=== PATIENT | male | born 1980 | race Caucasian/White ===

== ENCOUNTER 2016-09-23 00:15 | Emergency (ER) | payer OTHER ==
[2016-09-23 00:20] VITALS: TEMP 97.9
[2016-09-23] MEDS ORDERED: NS 1,000 ML IV ONE (00:30)
[2016-09-23] MEDS ORDERED: KETOROLAC 30 MG/1 ML SDV IVP ONE (00:30)
[2016-09-23] MEDS ORDERED: ONDANSETRON 4 MG/2 ML VIAL IVP ONE (00:30)
[2016-09-23] MEDS ORDERED: HALOPERIDOL LACT 5 MG/ML INJ IVP ONE (00:31)
--- NOTE | 2016-09-23 00:33 | EDPHY ---
H & P Stated Complaint: NAUSEA VOMITING FOR WEEKS, SICLET VOMITING Source: Patient, Old records Exam Limitations: No limitations - Personal History Current Tetanus/Diphtheria Vaccine: Yes Current Tetanus Diphtheria and Acellular Pertussis (TDAP): Yes - Medical/Surgical History Hx Asthma: No Hx Chronic Respiratory Disease: No Hx Diabetes: No Hx Cardiac Disease: No Hx Renal Disease: No Hx Cirrhosis: No Hx Alcoholism: No Hx HIV/AIDS: No Hx Splenectomy or Spleen Trauma: No Other PMH: DEPRESSION ANXIETY, cyclic vomiting - Family History Significant Family History: No pertinent family hx - Social History Smoking Status: Former smoker Alcohol Use: Sober Drug Use: None Time Seen by Provider: 09/23/16 00:26 HPI/ROS: CHIEF COMPLAINT: Cyclic vomiting HISTORY OF PRESENT ILLNESS: Patient is a 36-year-old man who comes to the emergency department complaining of cyclic vomiting. He states that he has been vomiting for about the last 2 weeks. Symptoms worsened today. He has not had a fever. He denies abdominal pain. He denies diarrhea. He states that he smokes marijuana daily. He has been told this contributes to the problem. He is taking BuSpar at home. He has not taken any other medications. No history of abdominal surgery. REVIEW OF SYSTEMS: Constitutional: denies: chills, fever, recent illness, recent injury EENTM: denies: blurred vision, double vision, nose congestion Respiratory: denies: cough, shortness of breath Cardiac: denies: chest pain, irregular heart rate, lightheadedness, palpitations Gastrointestinal/Abdominal: denies: abdominal pain, diarrhea, nausea, vomiting, blood streaked stools Genitourinary: denies: dysuria, frequency, hematuria, pain Musculoskeletal: denies: joint pain, muscle pain Skin: denies: lesions, rash, jaundice, bruising Neurological: denies: headache, numbness, paresthesia, tingling, dizziness, weakness Hematologic/Lymphatic: denies: blood clots, easy bleeding, easy bruising Immunologic/allergic: denies: HIV/AIDS, transplant EXAM: GENERAL: Moderate distress HEAD: Atraumatic, normocephalic. EYES: Pupils equal round and reactive to light, extraocular movements intact, sclera anicteric, conjunctiva are normal. ENT: TMs normal, nares patent, oropharynx clear without exudates. Moist mucous membranes. NECK: Normal range of motion, supple without lymphadenopathy or JVD. LUNGS: Breath sounds clear to auscultation bilaterally and equal. No wheezes rales or rhonchi. HEART: Regular rate and rhythm without murmurs, rubs or gallops. ABDOMEN: Soft, nontender, normoactive bowel sounds. No guarding, no rebound. No masses appreciated. BACK: No CVA tenderness, no spinal tenderness, step-offs or deformities EXTREMITIES: Normal range of motion, no pitting or edema. No clubbing or cyanosis. NEUROLOGICAL: Cranial nerves II through XII grossly intact. Normal speech, normal gait. 5/5 strength, normal movement in all extremities, normal sensation PSYCH: Normal mood, normal affect. SKIN: Warm, dry, normal turgor, no visible rashes or lesions. (Nato Goodson) Constitutional: Initial Vital Signs Temperature (C) 36.6 C 09/23/16 00:17 Heart Rate 66 09/23/16 00:17 Respiratory Rate 18 09/23/16 00:17 Blood Pressure 155/86 H 09/23/16 00:17 O2 Sat (%) 98 09/23/16 00:17 O2 Delivery Mode Room Air Allergies/Adverse Reactions: No Known Allergies Allergy (Unverified 09/23/16 00:20) Home Medications: Medication Instructions Recorded buPROPion SR [Wellbutrin] 300 mg PO DAILY 05/05/11 Medical Decision Making ED Course/Re-evaluation: Patient is improved. No further vomiting in his abdomen feels better. He would like to go home. Will discharge per Dr. Goodson instructions. (Lalito Centeno) The patient's abdominal exam is benign. He states that this is similar to previous episodes cyclic vomiting. he is requesting Zofran and fluids. Also treated with Haldol and Toradol for pain. He has received Toradol before. 1:00 a.m. patient's care transferred to Dr Centeno. Patient's abdominal exam remains benign. He states that the medication is beginning to work. We will continue to observe. (Nato Goodson) Differential Diagnosis: Partial list of the Differential diagnosis considered include but were not limited to; gastritis, cyclic vomiting, cannabis hyperemesis and although unlikely based on the history and physical exam, I also considered pancreatitis , appendicitis, biliary disease, peptic ulcer disease. (Nato Goodson) - Data Points Medications Given: Discontinued Medications Haloperidol Lactate (Haldol Injection) 5 mg IVP EDNOW ONE Stop: 09/23/16 00:32 Last Admin: 09/23/16 00:44 Dose: 5 mg Sodium Chloride (Ns) 1,000 mls @ 0 mls/hr IV ONCE ONE PRN Reason: Wide Open Stop: 09/23/16 00:31 Last Admin: 09/23/16 00:40 Dose: 1,000 mls Ketorolac Tromethamine (Toradol) 30 mg IVP EDNOW ONE Stop: 09/23/16 00:31 Last Admin: 09/23/16 00:42 Dose: 30 mg Ondansetron HCl (Zofran) 8 mg IVP EDNOW ONE Stop: 09/23/16 00:31 Last Admin: 09/23/16 00:42 Dose: 8 mg Departure - Departure Disposition: Home, Routine, Self-Care Clinical Impression: Marijuana abuse Cyclic vomiting syndrome Qualifiers: Vomiting Intractability: non-intractable Nausea presence: with nausea Qualified Code(s): G43.A0 - Cyclical vomiting, not intractable Condition: Fair Instructions: Acute Nausea and Vomiting (ED), Cannabis Abuse (ED) Referrals: Patient,NotPresent [Unknown] - As per Instructions Mary Epstein MD [Medical Doctor] - As per Instructions
[2016-09-23 01:50] VITALS: BP 167/83; RESP 16; O2SAT 94
[2016-09-23 02:01] VITALS: PULSE 50
== END 2016-09-23 02:01 | disposition home or self-care (01) ==
DX: G43.A0 Cyclical vomiting, in migraine, not intractable (principal); F12.10 Cannabis abuse, uncomplicated; Z87.891 Personal history of nicotine dependence
CPT/HCPCS: 96374; J1885; J2405

== ENCOUNTER 2016-09-24 08:34 | Emergency (ER) | payer OTHER ==
[2016-09-24] MEDS ORDERED: NS 2,000 ML IV ONE (09:09)
[2016-09-24] MEDS ORDERED: HALOPERIDOL LACT 5 MG/ML INJ IVP ONE (09:09)
--- NOTE | 2016-09-24 09:16 | EDPHY ---
H & P Stated Complaint: Here yesterday for same c/o;dx w/cyc vom syndrome;needs nausea med Time Seen by Provider: 09/24/16 08:56 HPI/ROS: CHIEF COMPLAINT: Vomiting, history of cyclic vomiting syndrome HISTORY OF PRESENT ILLNESS: 36-year-old male history of cyclic vomiting, daily marijuana use, seen the ER yesterday for complaints of acute exacerbation with cyclic vomiting, had relief after 5 mg of IV Haldol, states that he returned home and he had return of his nausea and vomiting. No abdominal pain. Bowel movements normal. No hematemesis. No melena or hematochezia. No dyspnea. No chest pain. No testicular pain or complaints. PRIMARY CARE PROVIDER:Reza REVIEW OF SYSTEMS: A ten point review of systems was performed and is negative with the exception of the items mentioned in the HPI PAST MEDICAL & SURGICAL HISTORY: Cyclic vomiting SOCIAL HISTORY: Daily marijuana PHYSICAL EXAM (Prior to examination, patient consented to physical exam, hands were washed and my usual and customary physical exam procedures followed) 1) GENERAL: Well-developed, well-nourished, alert and oriented. Appears nontoxic 2) HEAD: Normocephalic, atraumatic 3) HEENT: Pupils equal, round, reactive to light bilaterally. Sclera anicteric. Nasopharynx, oropharynx, clear, no lesions. Moist mucous membranes 4) NECK: Full range of motion, no meningeal signs. 5) LUNGS: Clear auscultation bilaterally, no wheezes, no rhonchi, no retractions. 6) HEART: Regular rate and rhythm, no murmur, no heave, no gallop. 7) ABDOMEN: No guarding, no rebound, no focal tenderness, negative McBurney's, negative Galicia's, negative Rovsing's, negative peritoneal sign, I am unable to elicit any abdominal pain on exam 8) MUSCULOSKELETAL: Moving all extremities, no focal areas of tenderness, no obvious trauma. No peripheral edema or discoloration. 9) BACK: No CVA tenderness, no midline vertebral tenderness, no fluctuance, no step-off, no obvious trauma, no visual or palpable abnormality. 10) SKIN: No rash, no petechiae. 11) Psychiatric: Patient is oriented X 3, there is no agitation. DIFFERENTIAL DIAGNOSIS: My differential diagnosis includes, but is not limited to, acute appendicitis, Cyclic vomiting,acute cholecystitis, bowel obstruction , acute pancreatitis, [testicular torsion, gastritis and urinary tract infection. The patient understands that this diagnosis is provisional and can never be 100% accurate. This is a partial list of diagnoses considered. These considerations are based on history, physical exam, past history and reassessment. - Personal History Current Tetanus Diphtheria and Acellular Pertussis (TDAP): Yes - Medical/Surgical History Hx Asthma: No Hx Chronic Respiratory Disease: No Hx Diabetes: No Hx Cardiac Disease: No Hx Renal Disease: No Hx Cirrhosis: No Hx Alcoholism: No Hx HIV/AIDS: No Hx Splenectomy or Spleen Trauma: No Other PMH: DEPRESSION ANXIETY, cyclic vomiting - Social History Smoking Status: Former smoker Constitutional: Initial Vital Signs Temperature (C) 36.6 C 09/24/16 08:35 Heart Rate 92 09/24/16 08:35 Respiratory Rate 16 09/24/16 08:35 Blood Pressure 146/102 H 09/24/16 08:35 O2 Sat (%) 98 09/24/16 08:35 O2 Delivery Mode Room Air Allergies/Adverse Reactions: No Known Allergies Allergy (Verified 09/24/16 08:36) Home Medications: Medication Instructions Recorded buPROPion SR [Wellbutrin] 300 mg PO DAILY 05/05/11 busPIRone [Buspar (*)] 10 mg PO 09/24/16 Medical Decision Making ED Course/Re-evaluation: 9:15 a.m. This patient appears well. I have reviewed his medical chart. He had resolution of symptoms after 5 mg of IV Haldol. This will be administered to him in addition to his IV fluids. At this time, in the absence of abdominal or testicular pain I do not think that imaging or laboratory studies are indicated I think that acute surgical abdominal/ pathology is less than likely. 9:41 a.m.: Patient noted to have a BUN creatinine ratio of 27. He has been given aggressive IV hydration with 2 L of normal saline. He is feeling improvement at this time 10:15 a.m.: Re-evaluation, asymptomatic. Abdomen soft no guarding or rebound. 11:15 a.m.: Re-evaluation. Re-examined his abdomen which is soft no guarding no rebound, flat. No McBurney's point pain. He is tolerate oral intake. He is asymptomatic. He would like to be discharged home. I think that acute surgical abdominal pathology is less than likely in this patient. He is a [place] patient. I recommend he follow up with his [place] physician this week ( today is Friday) as he may necessitate GI consultation and workup. In the meantime he has a prescription for anti emetic at home. Recommend marijuana cessation. Usual and customary abdominal precautions instructions provided. I discussed case Dr. Paulino Eaton in the ER. - Data Points Laboratory Results: Laboratory Results 09/24/16 08:51 09/24/16 08:51 09/24/16 09/24/16 08:51 08:51 WBC 18.41 10^3/uL H 10^3/uL (3.80-9.50) RBC 5.51 10^6/uL 10^6/uL (4.40-6.38) Hgb 18.1 g/dL H g/dL (13.7-17.5) Hct 50.5 % % (40.0-51.0) MCV 91.7 fL fL (81.5-99.8) MCH 32.8 pg pg (27.9-34.1) MCHC 35.8 g/dL g/dL (32.4-36.7) RDW 12.3 % % (11.5-15.2) Plt Count 270 10^3/uL 10^3/uL (150-400) MPV 10.4 fL fL (8.7-11.7) Neut % (Auto) 86.4 % H % (39.3-74.2) Lymph % (Auto) 6.2 % L % (15.0-45.0) [place] % (Auto) 7.0 % % (4.5-13.0) Eos % (Auto) 0.0 % L % (0.6-7.6) Baso % (Auto) 0.1 % L % (0.3-1.7) Nucleat RBC Rel Count 0.0 % % (0.0-0.2) Absolute Neuts (auto) 15.92 10^3/uL H 10^3/uL (1.70-6.50) Absolute Lymphs (auto) 1.14 10^3/uL 10^3/uL (1.00-3.00) Absolute Monos (auto) 1.28 10^3/uL H 10^3/uL (0.30-0.80) Absolute Eos (auto) 0.00 10^3/uL L 10^3/uL (0.03-0.40) Absolute Basos (auto) 0.01 10^3/uL L 10^3/uL (0.02-0.10) Absolute Nucleated RBC 0.00 10^3/uL 10^3/uL (0-0.01) Immature Gran % 0.3 % % (0.0-1.1) Immature Gran # 0.06 10^3/uL 10^3/uL (0.00-0.10) Sodium 140 mEq/L mEq/L (134-144) Potassium 4.2 mEq/L mEq/L (3.5-5.2) Chloride 99 mEq/L mEq/L (97-110) Carbon Dioxide 23 mEq/l mEq/l (22-31) Anion Gap 18 mEq/L H mEq/L (8-16) BUN 36 mg/dL H mg/dL (7-23) Creatinine 1.3 mg/dL mg/dL (0.7-1.3) Estimated GFR > 60 Glucose 135 mg/dL H mg/dL (70-100) Calcium 10.9 mg/dL H mg/dL (8.5-10.4) Phosphorus 2.7 mg/dL mg/dL (2.5-4.5) Total Bilirubin 2.2 mg/dL H mg/dL (0.1-1.4) Conjugated Bilirubin 0.4 mg/dL mg/dL (0.0-0.5) Unconjugated Bilirubin 1.8 mg/dL H mg/dL (0.0-1.1) AST 35 IU/L IU/L (17-59) ALT 57 IU/L IU/L (21-72) Alkaline Phosphatase 61 IU/L IU/L (38-126) Total Protein 8.5 g/dL H g/dL (6.3-8.2) Albumin 5.5 g/dL H g/dL (3.5-5.0) Lipase 99.0 IU/L IU/L (23-300) Medications Given: Discontinued Medications Haloperidol Lactate (Haldol Injection) 5 mg IVP EDNOW ONE Stop: 09/24/16 09:10 Last Admin: 09/24/16 09:12 Dose: 5 mg Sodium Chloride (Ns) 2,000 mls @ 0 mls/hr IV ONCE ONE PRN Reason: Wide Open Stop: 09/24/16 09:10 Last Admin: 09/24/16 09:12 Dose: 2,000 mls Departure - Departure Disposition: Home, Routine, Self-Care Clinical Impression: Cyclical vomiting Qualifiers: Vomiting Intractability: non-intractable Nausea presence: with nausea Qualified Code(s): G43.A0 - Cyclical vomiting, not intractable Condition: Good Instructions: Acute Nausea and Vomiting (ED) Additional Instructions: Seek immediate medical attention if you develop new or worsening symptoms, if you develop fevers, chills, inability to tolerate oral intake or any other symptoms that concerns you. Referrals: [facility] [Outside] - 1-2 days without fail
[2016-09-24 09:21] LABS: % IMMATURE GRANULYOCYTES 0.3 % (0.0-1.1); ABSOLUTE IMMATURE GRANULOCYTES 0.06 10^3/uL (0.00-0.10); ADD DIFF? NO; ADD MORPH? NO; ADD SCAN? NO; ATYPICAL LYMPHOCYTE FLAG 0 (0-99); FRAGMENT RBC FLAG 0 (0-99); HEMATOCRIT 50.5 % (40.0-51.0); HEMOGLOBIN 18.1 g/dL (13.7-17.5); LEFT SHIFT FLG 0 (0-99); LIPEMIA HEMOLYSIS FLAG 90 (0-99); MEAN CELL HEMOGLOBIN 32.8 pg (27.9-34.1); MEAN CELL HEMOGLOBIN CONCENTR. 35.8 g/dL (32.4-36.7); MEAN CELL VOLUME 91.7 fL (81.5-99.8); MEAN PLATELET VOLUME 10.4 fL (8.7-11.7); PLATELET CLUMPS FLAG 0 (0-99); PLATELET COUNT 270 10^3/uL (150-400); RED BLOOD CELL COUNT 5.51 10^6/uL (4.40-6.38); RED CELL DISTRIBUTION WIDTH 12.3 % (11.5-15.2)
[2016-09-24 09:29] LABS: ALANINE AMINOTRANSFERASE 57 IU/L (21-72); ALBUMIN 5.5 g/dL (3.5-5.0); ALKALINE PHOSPHATASE 61 IU/L (38-126); ANION GAP 18 mEq/L (8-16); ASPARTATE AMINOTRANSFERASE 35 IU/L (17-59); BILIRUBIN,TOTAL 2.2 mg/dL (0.1-1.4); BILIRUBIN-CONJUGATED 0.4 mg/dL (0.0-0.5); BILIRUBIN-UNCONJUGATED 1.8 mg/dL (0.0-1.1); CALCIUM 10.9 mg/dL (8.5-10.4); CARBON DIOXIDE 23 mEq/l (22-31); CHLORIDE 99 mEq/L (97-110); CREATININE 1.3 mg/dL (0.7-1.3); GLOMERULAR FILTRATION RATE > 60; GLUCOSE 135 mg/dL (70-100); POTASSIUM 4.2 mEq/L (3.5-5.2); SODIUM 140 mEq/L (134-144); TOTAL PROTEIN 8.5 g/dL (6.3-8.2)
[2016-09-24 11:36] VITALS: BP 128/78; PULSE 70; RESP 14; TEMP 98.4; O2SAT 94
== END 2016-09-24 11:35 | disposition home or self-care (01) ==
DX: G43.A0 Cyclical vomiting, in migraine, not intractable (principal); Z87.891 Personal history of nicotine dependence
CPT/HCPCS: 96374